=== PATIENT | female | born 1995 | race Caucasian/White ===

== ENCOUNTER 2016-12-19 09:18 | Emergency (ER) | payer BC ==
[~2016-12-19] VITALS: Ht 154.9 cm; Wt 54.5 kg
[~2016-12-19 09:18] MED LIST: DEPO-PROVER150 MG/M1 IM; NORCO 325 MG-51 TAB PO; ZOLOFT 100MG100 MG; ZOVIA 1/35E 351 TA1; [UNRECOGNIZED DRUG - OTHER]
[2016-12-19 09:24] VITALS: BP 118/76; PULSE 76; TEMP 98.6
[2016-12-19] MEDS ORDERED: KELNOR 1/35-281 TAB (09:26)
[2016-12-19 10:01] LABS: BASO % 0.3 % (0.0-2.0); EOS % 0.2 % (0-4.0); GRAN # 10.2 (1.4-6.5); GRAN % 79.6 % (42.2-75.2); HEMOGLOBIN 14.6 g/dl (12.5-16.0); LYMPH # 1.8 (1.2-3.4); LYMPH % 14.4 % (20.0-51.0); MEAN CELL VOLUME 95 fl (80.0-100.0); MEAN CORPUSCULAR HEMOGLOBIN 33 pg (27.0-31.0); MEAN CORPUSCULAR HGB CONC 35 g/dl (33.0-37.0); MEAN PLATELET VOLUME 10.7 fl (7.4-10.4); MONO # 0.7 (0.1-0.6); MONO % 5.1 % (1.7-9.3); PLATELET COUNT 247 K/mm3 (130-400); RED BLOOD COUNT 4.42 M/mm3 (4.10-5.30); REDCELL DISTRIBUTION WIDTH-CV 12.1 % (11.5-14.5); WHITE BLOOD COUNT 12.8 K/mm3 (4.8-10.8)
[2016-12-19 10:09] LABS: PH 7 (5-8); SQUAMOUS EPITHELIAL 0-2 /hpf; URINE APPEARANCE Clear; URINE BACTERIA None Seen /hpf; URINE BILIRUBIN Negative (NEGATIVE); URINE BLOOD Negative (NEGATIVE); URINE COLOR Yellow; URINE GLUCOSE Negative (NEGATIVE); URINE KETONE Negative (NEGATIVE); URINE RBC 0-2 /hpf; URINE UROBILINOGEN Negative (NEGATIVE); URINE WBC 0-2 /hpf
[2016-12-19 11:25] LABS: ADJUSTED CALCIUM 9.1 mg/dL (8.4-10.2); ALBUMIN 3.7 gm/dL (3.5-5.0); C-REACTIVE PROTEIN 0.9 mg/dL (0.0-0.9); CALCIUM 8.9 mg/dL (8.4-10.2); CREATININE, serum 0.76 mg/dL (0.52-1.25); POTASSIUM 4.1 mmol/L (3.4-5.0); TOTAL PROTEIN 6.7 gm/dL (6.4-8.2)
[2016-12-19] MEDS ORDERED: CARAFATE 1GM1 G PO (13:25)
[2016-12-19] MEDS ORDERED: PRIL40 PO (13:25)
== END 2016-12-19 13:35 | disposition home or self-care (01) ==
LOC: COL.ER 09:18
PROVIDERS: Emergency Medicine
DX: K29.70 Gastritis, unspecified, without bleeding (principal); F32.9 Major depressive disorder, single episode, unspecified
CPT/HCPCS: J7030; Q9967